=== PATIENT | male | born 2005 | race Hispanic/Latino ===

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

== ENCOUNTER 2024-07-31 10:50 | Emergency (ER) | payer BC, SELFPAY ==
--- NOTE | ~2024-07-31 | XR_ITS ---
XR ribs LT 2V w CXR 2V Ordering provider: Ronald Bartlett MD History: . pain, recent cough, LOWER RIB PAIN NO INJURY . Comparison: None. FINDINGS: BONES: Fracture of the left fifth rib.. Possible fracture of the sixth and seventh ribs. MEDIASTINUM: The cardiac silhouette is not enlarged. LUNGS: No infiltrates, effusions or pneumothorax. OTHER: No free air under the diaphragm. IMPRESSION: 1. Fracture of the left fifth rib. Possible fracture of the left sixth and seventh ribs. 2. No acute cardiopulmonary findings. Reviewed, dictated and finalized at location A. IMPRESSION: 1. Fracture of the left fifth rib. Possible fracture of the left sixth and sev enth ribs. 2. No acute cardiopulmonary findings.
[2024-07-31 11:08] VITALS: BP 135/85; PULSE 74; RESP 18; TEMP 36.8; O2SAT 97
--- OUTSIDE RECORDS SUMMARY | 2024-07-31 11:11 | XMS_ITS | Clinical Summary ---
Author Organization [facility] Address [address] [place] [address] Care Team Providers Care Director Of Physician Practices Name Role Phone Joaquina Sanchez MD Primary Care Provider [phone] Source Comments [facility],non-owned Affiliates and Associated Physician Practices is amultiple site organization consisting of ambulatory clinics and hospital sitesin [place], [place], [place] and [place]. This disclosure is being madepursuant to the Care Everywhere program and may not contain all information available regarding this patient. Last updated 17.[facility] Puridify Allergies Active Allergy Reactions Criticality Noted Date Comments Ibuprofen 05/04/2016 Medications * Be aware that medications may not be up to date on this document. Alwaysverify current medications with the patient. albuterol HFA (PROVENTIL;VENT JORGE L;PROAIR) 108 (90 BASE) MCG/ACT inhaler Inhale 2 Puffs by mouth every 6 hours as needed. 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 Gender Identity Not on file Sexual Orientation Not on file Last Filed Vital Signs Vital Sign Reading Time Taken Comments Blood Pressure - - Pulse - - Temperature 36 C (96.8 F) 10/09/2013 8:22 AM CDT Respiratory Rate - - Oxygen Saturation - - Inhaled Oxygen Concentration - - Weight 70.6 kg (155 lb 10.3 oz) 05/04/2016 1:02 PM TRAFFIC DIRECTOR Height 165.1 cm (5' 5 ) 05/04/2016 1:02 PM TRAFFIC DIRECTOR Body Mass Index 25.9 05/04/2016 1:02 PM TRAFFIC DIRECTOR Plan of Treatment Health Maintenance Due Date Last Done Comments HIV SCREENING 07/31/2018 HPV VACCINE (1 - Male 3-dose series) 07/31/2018 MENINGOCOCCAL (Group B) VACC INE SHARED DECISION-MAKING (1 of 2 - Standard) 2019 HEPATITIS C SCREENING 07/27/2021 DTAP/TDAP/TD VACCINES (1 - Tdap) 07/31/2022 HEPATITIS B VACCINE (1 of 3 - 19+ 3-dose series) 07/31/2022 COVID-19 VACCINE (1 - 2023-2 5 season) 2023 DEPRESSION SCREENING 03/21/2024 INFLUENZA VACCINE (Season Ended) 2024 ZOSTER VACCINE (1 of 2) 07/31/2053 HIB VACCINE Aged Out No longer eligi ble based on patient's age to complete this topic MENINGOCOCCAL GROUPS A/C/Y/W VACCINE Aged Out No longer eligible b ased on patient's age to complete this topic PNEUMOCOCCAL VACCINE Aged Out No long er eligible based on patient's age to complete this topic Insurance MEDICAID - [place] Care Teams Director Of Physician Practices Relationship Specialty Start Date End Date Joaquina Sanchez MD [address] [place] [address] [address] [place] [address] PCP - General Family Medicine 10/04/13
--- OUTSIDE RECORDS SUMMARY | 2024-07-31 11:11 | XMS_ITS | Clinical Summary ---
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 Gender Identity Not on file Sexual Orientation Not on file Plan of Treatment Health Maintenance Due Date Last Done Comments Hepatitis C Virus (HCV) Screening 2003 TdaP Immunization 2003 Human Papillomavirus (HPV) Immunization (1 - Male 3-dose series) 07/31/2018 Meningococcal B Immunization (1 of 2 - Standard) 2019 Hepatitis B Immunization (1 of 3 - 19+ 3-dose series) 07/31/2022 Influenza Immunization (#1) 2023 SARS-COV-2 Immunization ( - season) 2023 Respiratory Syncytial Virus (RSV) Immunization (Adult) (1 - 1-dose 75+ series) 07/31/2078 Meningococcal Immunization (ACWY) Aged Out No longer eligible based on patient's age to complete this topic Pneumococcal Immunization Combined Aged Out No longer eligible based on patient's age to complete this topic Rotavirus Immunization Aged Out No lo nger eligible based on patient's age to complete this topic
--- OUTSIDE RECORDS SUMMARY | 2024-07-31 11:11 | XMS_ITS | Clinical Summary ---
Author Organization [facility] Address [facility] [place] [address] Care Team Providers Care Manufacturing Associate Name Role Phone Unavailable Primary Care Provider Unavailabl e Social History Tobacco Use Types Packs/Day Years Used Date Smoking Tobacco: Never Assessed Sex and Gender Information Value Date Recorded Sex Assigned at Not on file Legal Sex Male 7:08 PM CDT Gender Identity Not on file Sexual Orientation Not on file Plan of Treatment Health Maintenance Due Date Last Done Comments Annual Physical 07/31/2006 HPV Vaccines (1 - Male 3-dos e series) 07/31/2018 Meningococcal B Vaccine (1 o f 2 - Standard) 2019 Hepatitis C 07/31/2021 DTaP, Tdap and Td Vaccines ( 1 - Tdap) 07/31/2022 Hepatitis B Vaccines (1 of 3 - 19+ 3-dose series) 07/31/2022 COVID-19 Vaccine (1 - 2023-2 5 season) 2023 Meningococcal Vaccine Aged Out No loren aguilar eligible based on patient's age to complete this topic Pneumococcal Vaccine: Pediat rics (0 to 5 Years) and At-Risk Patients (6 to 49 Years) Aged Out No longer eligible b ased on patient's age to complete this topic RSV Immunizations Under 20 Months Aged Out No longer eligible based on patient's age to complete this topic
--- OUTSIDE RECORDS SUMMARY | 2024-07-31 12:05 | XMS_ITS | Clinical Summary ---
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
--- OUTSIDE RECORDS SUMMARY | 2024-07-31 12:05 | XMS_ITS | Clinical Summary ---
Author Organization [facility] Address [facility] [place] [address] Care Team Providers Care Energy Efficient Site Manager Name Role Phone Unavailable Primary Care Provider [...]
--- OUTSIDE RECORDS SUMMARY | 2024-07-31 12:06 | XMS_ITS | Clinical Summary ---
Author Organization [facility] Address [address] [place] [address] Care Team Providers Care Sliding Joint Maker Name Role Phone Joaquina Sanchez MD Primary Care Provider [phone] Source Comments [facility],non-owned Affiliates and Associated Physician Practices is amultiple site organization consisting of ambulatory clinics and hospital sitesin [place], [place], [place] and [place]. This disclosure is being madepursuant to the Care Everywhere program and may not contain all information available regarding this patient. 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
--- NOTE | 2024-07-31 12:36 | ED.GENADULT ---
HPI - General Adult General Chief complaint: Back Pain/Injury Stated complaint: back pain Time Seen by Provider: 07/31/24 12:01 History of Present Illness HPI narrative: Patient is a 19-year-old male who presents ER with left-sided back/chest wall pain. Ongoing for 2 weeks. Began after having cough and wheezing. No fevers or chills or sweats. It is a sensation that it is moving at times. No exertional chest pain or dyspnea. Pain increased at work today and made him nauseous so he went to be evaluated. No abdominal discomfort. No testicular pain. Related Data Allergies Allergy/AdvReac Type Severity Reaction Status Date / Time ibuprofen Allergy Swelling Verified 07/31/24 10:53 of Lip/Tongue/Throat NSAIDS (Non-Steroidal Allergy Anaphylaxis Verified 07/31/24 10:53 Anti-Inflamma Review of Systems Review of Systems: All systems reviewed & are unremarkable except as noted in HPI and below Constitutional: Constitutional: Reports no additional constitutional complaints ENT: Reports system reviewed and no additional complaints, except as documented Cardiovascular: Cardiovascular: Reports no additional cardiovascular complaints Respiratory: Respiratory: Reports no additional respiratory complaints Gastrointestinal: Gastrointestinal: Reports no additional gastrointestinal complaints Genitourinary: Genitourinary: Reports no additional male genitourinary complaints PMFSH Past Medical History Medical History Asthma Surgical History Surgical History No pertinent past surgical history Social History Social History Smoking status: Never smoker Alcohol intake: never Substance use: never Occupation/Education: student Gender identity (if verbalized by the patient): Male Exam Narrative: GENERAL: Well-appearing, well-nourished, and in no acute distress. HEAD: Normocephalic, atraumatic. ENT: Mucous membranes moist. NECK: Supple. CHEST: Clear to auscultation. No respiratory distress. Tender palpation over the left posterior lateral rib around6. No crepitus. HEART: Regular rate and rhythm. Normal peripheral pulses. EXTREMITIES: Normal range of motion. No edema. NEURO: Alert and oriented x3. PSYCH: Normal mood and affect. Course Course Emergency Course: Informed of results. Discussed pain control for home. D/c. Vital Signs Vital signs: Vital Signs Temperature 98.3 F 07/31/24 11:08 Pulse Rate 74 07/31/24 11:08 Respiratory Rate 18 07/31/24 11:08 Blood Pressure 135/85 07/31/24 11:08 Pulse Oximetry 97 07/31/24 11:08 Temperature 98.3 F 07/31/24 11:08 Pulse Rate 74 07/31/24 11:08 Respiratory Rate 18 07/31/24 11:08 Blood Pressure 135/85 07/31/24 11:08 Pulse Oximetry 97 07/31/24 11:08 Medical Decision Making Vital Signs Vital Signs: Vital Signs Temperature 98.3 F 07/31/24 11:08 Pulse Rate 74 07/31/24 11:08 Respiratory Rate 18 07/31/24 11:08 Blood Pressure 135/85 07/31/24 11:08 Pulse Oximetry 97 07/31/24 11:08 Temperature 98.3 F 07/31/24 11:08 Pulse Rate 74 07/31/24 11:08 Respiratory Rate 18 07/31/24 11:08 Blood Pressure 135/85 07/31/24 11:08 Pulse Oximetry 97 07/31/24 11:08 Imaging Data Radiologist's impression: ITS Impressions Ribs w/Chest X-Ray 07/31/24 13:12 IMPRESSION: 1. Fracture of the left fifth rib. Possible fracture of the left sixth and seventh ribs. 2. No acute cardiopulmonary findings. Discharge Plan Discharge Clinical Impression: Fracture of rib Patient Disposition: Home Condition: Stable Instructions: Rib Fracture (ED) Additional Instructions: Please return to the emergency department if you develop severe and persistent chest pain, difficulty breathing, dizziness, leg swelling or if you are coughing up blood as these can be signs of a medical emergency. Please call your doctor for a follow up appointment to determine the need for further testing. Patient Language: Maltese Prescriptions: New hydrocodone-acetaminophen 5-325 mg tablet 1 tablet PO Q6H PRN (Reason: pain) Qty: 12 0RF Follow-up/Referrals: UNKNOWN,DOCTOR [Primary Care Provider] -
== END 2024-07-31 13:37 | disposition home or self-care (01) ==
PROVIDERS: Emergency Provider Emergency Medicine
DX: S22.32XA Fracture of one rib, left side, initial encounter for closed fracture (principal); J45.909 Unspecified asthma, uncomplicated; X58.XXXA Exposure to other specified factors, initial encounter
CPT/HCPCS: 71046; 71100; 99283